=== PATIENT | male | born 1970 | race Caucasian/White ===

== ENCOUNTER 2019-01-05 07:51 | Day surgery (SDC) | payer OTHER ==
[2019-01-05] MEDS ORDERED: ONDANSETRON HCL INJ/PF 4 MG/2 ML SDV IV ONE (08:40)
[2019-01-05] MEDS ORDERED: HYDROMORPHONE HCL INJ/PF 2 MG/ML AMPULE IV ONE ×2 (08:40→11:12)
[2019-01-05] MEDS ORDERED: NORMAL SALINE 1000 ML 1,000 ML IV ONE (08:40)
[2019-01-05 08:50] LABS: ABSOLUTE BASOPHILS # (AUTO) 0.1 10^3/uL (0.0-0.2); ABSOLUTE LYMPHOCYTES (AUTO) 1.5 10^3/uL (0.5-4.7); ABSOLUTE MONOCYTES (AUTO) 0.9 10^3/uL (0.1-1.4); ABSOLUTE NEUT (AUTO) 15.7 10^3/uL (1.7-8.2); BASOPHILS % (AUTO) 0.4 % (0-2); EOSINOPHILS % (AUTO) 0.1 % (0-6); HEMATOCRIT 45.3 % (37.9-51.0); HEMOGLOBIN 15.4 g/dL (13.5-17.0); LYMPHOCYTES % (AUTO) 8.3 % (13-45); MEAN CORPUSCULAR HEMOGLOBIN 27.4 pg (27.0-33.4); MEAN CORPUSCULAR VOLUME 81 fl (80-97); MONOCYTES % (AUTO) 4.9 % (3-13); PLATELET COUNT 351 10^3/uL (150-450); RED BLOOD COUNT 5.62 10^6/uL (4.35-5.55); RED CELL DISTRIBUTION WIDTH 13.6 % (11.5-14.0); SEGMENTED NEUTROPHILS % (AUTO) 86.3 % (42-78); TOTAL CELLS COUNTED % (AUTO) 100 %; WHITE BLOOD COUNT 18.2 10^3/uL (4.0-10.5)
[2019-01-05 09:20] LABS: ALBUMIN 4.6 g/dL (3.5-5.0); ALKALINE PHOSPHATASE 108 U/L (38-126); ANION GAP 12 (5-19); ASPARTATE AMINO TRANSFERASE 37 U/L (17-59); BILIRUBIN,DIRECT 0.4 mg/dL (0.0-0.4); BILIRUBIN,TOTAL 0.9 mg/dL (0.2-1.3); BLOOD UREA NITROGEN 12 mg/dL (7-20); CARBON DIOXIDE 23 mmol/L (22-30); CHLORIDE 103 mmol/L (98-107); GLUCOSE 143 mg/dL (75-110); POTASSIUM 4.5 mmol/L (3.6-5.0); TOTAL PROTEIN 8.3 g/dL (6.3-8.2)
--- NOTE | 2019-01-05 09:36 | ER Document Report ---
Entered by DARRYL PINTO SCRIBE 01/05/19 0841 Acting as scribe for:IDANIA CUBA MD ED GI/ - General Chief Complaint: Abdominal Pain Stated Complaint: ABDOMINAL PAIN Time Seen by Provider: 01/05/19 08:27 Primary Care Provider: ES,PETRA [Primary Care Provider] - Follow up as needed Mode of Arrival: Ambulatory Information source: Patient Notes: Patient is a 48-year-old male with a history of kidney stones that presents to the emergency department today with complaints of periumbilical abdominal pain beginning yesterday at 2200, increasing in severity since onset. Patient states he has had associated nausea and vomiting as well. Patient states the pain today is similar to a pain he has had in the past which was related to an inguinal hernia that had to be repaired. Patient states he has recently been taking 800 mg ibuprofen [id number] for chronic knee pain. Patient states he has felt "hot and cold". TRAVEL OUTSIDE OF THE [place] IN LAST 30 DAYS: No - Related Data Allergies/Adverse Reactions: No Known Allergies Allergy (Unverified 01/05/19 07:53) Past Medical History - General Information source: Patient - Social History Smoking Status: Never Smoker Cigarette use (# per day): No Frequency of alcohol use: Social Drug Abuse: None Occupation: Retired Lives with: Family Family History: Reviewed & Not Pertinent Renal/ Medical History: Reports: Hx Kidney Stones Past Surgical History: Reports: Hx Inguinal Hernia - bilateral Review of Systems - Review of Systems Constitutional: See HPI, Other - feeling "hot and cold" EENT: No symptoms reported Cardiovascular: No symptoms reported Respiratory: No symptoms reported Gastrointestinal: See HPI, Abdominal pain, Nausea, Vomiting, Constipation Genitourinary: No symptoms reported Male Genitourinary: No symptoms reported Musculoskeletal: No symptoms reported Skin: No symptoms reported Hematologic/Lymphatic: No symptoms reported Neurological/Psychological: No symptoms reported -: Yes All other systems reviewed and negative Physical Exam - Vital signs Vitals: Temp Pulse Resp BP Pulse Ox 97.8 F 100 22 H 135/92 H 93 01/05/19 07:58 01/05/19 07:58 01/05/19 07:58 01/05/19 07:58 01/05/19 07:58 - Notes Notes: Physical Exam: General: Alert, appears uncomfortable. HEENT: Normocephalic. Atraumatic. PERRL. Extraocular movements intact. Oropharynx clear. Neck: Supple. Non-tender. Respiratory: No respiratory distress. Clear and equal breath sounds bilaterally. Cardiovascular: Regular rate and rhythm. Abdominal: Lower abdominal tenderness with palpation with guarding, upper abdomen is less tender with less guarding. No distension. Hypoactive Bowel Sounds. Back: No gross abnormalities. Extremities: Moves all four extremities. Upper extremities: Normal inspection. Normal ROM. Lower extremities: Normal inspection. No edema. Normal ROM. Neurological: Normal cognition. AAOx4. Normal speech. Psychological: Normal affect. Normal Mood. Skin: Warm. Dry. Normal color. Course - Re-evaluation Re-evalutation: 01/05/19 09:39 Reevaluation after giving the patient pain medication, he states that the pain is much better. Palpating the lower abdomen now still produces guarding all the way across, but he denies pain left side, but has significant pain in the right lower quadrant. Will get an IV contrast CT scan of the abdomen pelvis. - Vital Signs Vital signs: Temp Pulse Resp BP Pulse Ox 97.8 F 92 17 132/87 H 92 01/05/19 07:58 01/05/19 10:00 01/05/19 10:00 01/05/19 10:00 01/05/19 10:00 - Laboratory Result Diagrams: 01/05/19 08:29 01/05/19 08:29 Laboratory results interpreted by me: 01/05/19 01/05/19 08:29 08:29 WBC 18.2 H RBC 5.62 H Lymph % (Auto) 8.3 L Absolute Neuts (auto) 15.7 H Seg Neutrophils % 86.3 H Glucose 143 H Total Protein 8.3 H - Diagnostic Test Radiology reviewed: Image reviewed, Reports reviewed - CT scan abdomen pelvis with IV contrast shows acute appendicitis Discharge - Discharge Clinical Impression: Acute appendicitis Qualifiers: Acute appendicitis type: with localized peritonitis Appendicitis gangrene presence: unspecified whether gangrene present Appendicitis perforation presence: without perforation Appendicitis abscess presence: without abscess Qualified Code(s): K35.30 - Acute appendicitis with localized peritonitis, without perforation or gangrene Leukocytosis Qualifiers: Leukocytosis type: unspecified Qualified Code(s): D72.829 - Elevated white blood cell count, unspecified Condition: Stable Disposition: ADMITTED INPATIENT Admitting Provider: Surgicalist Unit Admitted: OR [facility]: [facility] [[facility]] - Follow up as needed Scribe Attestation: 01/05/19 09:40 I personally performed the services described in the documentation, reviewed and edited the documentation which was dictated to the scribe in my presence, and it accurately records my words and actions. I personally performed the services described in the documentation, reviewed and edited the documentation which was dictated to the scribe in my presence, and it accurately records my words and actions.
[2019-01-05 09:45] LABS: APPEARANCE,URINE CLEAR; BILIRUBIN,URINE NEGATIVE (NEGATIVE); COLOR,URINE YELLOW; GLUCOSE, URINE NEGATIVE (NEGATIVE); KETONES,URINE NEGATIVE (NEGATIVE); LEUKOCYTE ESTERASE,URINE NEGATIVE (NEGATIVE); NITRITE,URINE NEGATIVE (NEGATIVE); PROTEIN,URINE NEGATIVE (NEGATIVE); URINE SPECIFIC GRAVITY 1.019; UROBILINOGEN,URINE NEGATIVE mg/dL (<2.0)
--- NOTE | 2019-01-05 11:00 | RADIOLOGY REPORT (SQ) ---
EXAM DESCRIPTION: CT ABD/PELVIS WITH IV ONLY COMPLETED DATE/TIME: 01/05/2019 10:42 am REASON FOR STUDY: RLQ abd pain, leukocytosis COMPARISON: None. TECHNIQUE: CT scan of the abdomen and pelvis performed using helical scanning technique with dynamic intravenous contrast injection. No oral contrast. Images reviewed with lung, soft tissue, and bone windows. Reconstructed coronal and sagittal MPR images reviewed. Delayed images for evaluation of the urinary system also acquired. All images stored on PACS. All CT scanners at this facility use dose modulation, iterative reconstruction, and/or weight based d osing when appropriate to reduce radiation dose to as low as reasonably achievable (ALARA). [facility]: Dose Right [facility]: CareDose [facility]: Dose Right [facility]: Teradose 4D [facility]: GeeYuu CONTRAST TYPE AND DOSE: contrast/concentration: Isovue 350.00 mg/ml; Total Contrast Delivered: 100.0 ml; Total Saline Delivered: 72.0 ml RENAL FUNCTION: BUN 12, creatinine 0.84 RADIATION DOSE: CT Rad equipment meets quality standard of care and radiation dose reduction techniq ues were employed. CTDIvol: 14.6 - 17.2 mGy. DLP: 1858 mGy-cm.. LIMITATIONS: None. FINDINGS: LOWER CHEST: No significant findings. No nodules or infiltrates. LIVER: Normal size. No masses. No dilated ducts. SPLEEN: Normal size. No focal lesions. PANCREAS: No masses. No significant calcifications. No adjacent inflammation or peripancreatic fluid collections. Pancreatic duct not dilated. GALLBLADDER: No identified stones by CT criteria. No inflammatory changes to suggest cholecystitis. ADRENAL GLANDS: No significant masses or asymmetry. RIGHT KIDNEY AND URETER: No solid masses. No significant calcifications. No hydronephrosis or hyd roureter. LEFT KIDNEY AND URETER: No solid masses. No significant calcifications. No hydronephrosis or hydr oureter. AORTA AND VESSELS: No aneurysm. No dissection. Renal arteries, SMA, celiac without stenosis. RETROPERITONEUM: No retroperitoneal adenopathy, hemorrhage or masses. BOWEL AND PERITONEAL CAVITY: No masses or inflammatory changes. No free fluid or peritoneal masses. APPENDIX: The appendix is slightly dilated. There is surrounding inflammation. Findings are consist ent with acute appendicitis. The appendix measures up to 12.1 mm in diameter. No free air. PELVIS: No mass. No free fluid. Normal bladder. ABDOMINAL WALL: No masses. No hernias. BONES: No significant or acute findings. OTHER: No other significant finding. IMPRESSION: Findings are consistent with acute appendicitis as described. TECHNICAL DOCUMENTATION: JOB ID: [id number] Quality ID # [id number]: Final reports with documentation of one or more dose reduction techniques (e.g., Au tomated exposure control, adjustment of the mA and/or kV according to patient size, use of iterative reconstruction technique) 2010 [employer]- All Rights Reserved Reading location - IP/workstation name: [email or web address]
[2019-01-05] MEDS ORDERED: PIPERACILLIN/TAZOBACTAM 3.375 GM VIAL IV ONE (11:12)
--- NOTE | 2019-01-05 11:56 | PDOC H&P ---
History of Present Illness Admission Date/PCP: 01/05/19 11:43 [facility] History of Present Illness: JERRI RODRIGUEZ is a 48 year old malewith a history of kidney stones that presents to the emergency department today with complaints of periumbilical abdominal pain beginning yesterday at 2200, increasing in severity since onset. Patient states he has had associated nausea and vomiting as well. Patient states the pain today is similar to a pain he has had in the past which was related to an inguinal hernia that had to be repaired. Patient states he has recently been taking 800 mg ibuprofen [id number] for chronic knee pain. Patient states he has felt "hot and cold". TRAVEL OUTSIDE OF THE [place] IN LAST 30 DAYS: No Past Medical History Cardiac Medical History: Reports: None Pulmonary Medical History: Denies: None, Asthma, Bronchitis, Chronic Obstructive Pulmonary Disease (COPD), Intubation, Pneumonia, Respiratory Failure, Sleep Apnea, Tuberculosis, Other EENT Medical History: Denies: None, Cataracts, Eyes, Ears, Nose, Throat, Other Neurological Medical History: Denies: None, Hemorrhagic CVA, Ischemic CVA, Migraine, Multiple Sclerosis, Seizures, Other Endocrine Medical History: Reports: None Renal/ Medical History: Reports: None GI Medical History: Denies: None, Cirrhosis, Crohn's Disease, Diverticulitis, Gastroesophageal Reflux Disease, Hepatitis, Hiatal Hernia, Peptic Ulcer Disease, Ulcerative Colitis, Other Musculoskeltal Medical History: Reports: Arthritis Skin Medical History: Denies: None, Eczema, Psoriasis, Other Psychiatric Medical History: Denies: None, Alcohol Dependency, Attention Deficit Hyperactivity Disorder, Bipolar Disorder, Dementia, Depression, General Anxiety Disorder, Personality Disorder, Post Traumatic Stress Disorder, Schizoaffective Disorder, Substance Abuse, Tobacco Dependency, Other Traumatic Medical History: Denies: None, Gunshot Wound, Pneumothorax, Stab Wound, Traumatic Brain Injury, Other Infectious Medical History: Denies: None, Clostridium Difficile, Hepatitis B, Hepatitis C, HIV, Methicillin-Resistant Staph Aureus, Vancomycin-Resistant Enterococci, Other Past Surgical History Past Surgical History: Reports: Orthopedic Surgery Social History Lives with: Family Smoking Status: Never Smoker Family History Family History: Reviewed & Not Pertinent Parental Family History Reviewed: No Children Family History Reviewed: NA Sibling(s) Family History Reviewed.: NA Medication/Allergy Allergies/Adverse Reactions: No Known Allergies Allergy (Unverified 01/05/19 07:53) Review of Systems Constitutional: PRESENT: fatigue Ears: ABSENT: as per HPI, hearing changes, other Nose, Mouth, and Throat: ABSENT: as per HPI, headache(s), mouth pain, sore throat, vertigo, other Breasts: ABSENT: as per HPI, other Cardiovascular: ABSENT: as per HPI, chest pain, dyspnea on exertion, edema, orthropnea, palpitations, other Respiratory: ABSENT: as per HPI, cough, dyspnea, hemoptysis, sputum, other Gastrointestinal: PRESENT: abdominal pain, bloating Genitourinary: ABSENT: as per HPI, difficulty urinating, dysuria, hematuria, nocturia, other Musculoskeletal: ABSENT: as per HPI, back pain, deformity, joint swelling, muscle weakness, other Integumentary: ABSENT: as per HPI, diaphoresis, erythema, lesions, pruritus, rash, wounds, other Neurological: ABSENT: as per HPI, abnormal gait, abnormal movements, abnormal speech, confusion, convulsions, dizziness, focal weakness, frequent falls, lack of coordination, memory loss, numbness, paresthesias, restless legs, syncope, tingling, tremor(s), vertigo, weakness, other Psychiatric: ABSENT: as per HPI, anxiety, depression, hallucinations, homidical ideation, suicidal ideation, other Endocrine: ABSENT: as per HPI, cold intolerance, flushing, heat intolerance, menstrual abnormalities, polydipsia, polyphagia, polyuria, other Hematologic/Lymphatic: ABSENT: as per HPI, easy bleeding, easy bruising, lymphadenopathy, other Allergic/Immunologic: ABSENT: as per HPI, seasonal rhinorrhea, other Physical Exam Vital Signs: Temp Pulse Resp BP Pulse Ox 97.8 F 96 15 124/87 H 93 01/05/19 07:58 01/05/19 11:29 01/05/19 11:29 01/05/19 11:29 01/05/19 11:29 Intake & Output 01/04/19 01/05/19 01/06/19 06:59 06:59 06:59 Intake Total 1000 Balance 1000 Weight 88.6 kg General appearance: PRESENT: mild distress Head exam: PRESENT: normocephalic Eye exam: PRESENT: EOMI Ear exam: PRESENT: normal external ear exam Mouth exam: PRESENT: moist Neck exam: PRESENT: full ROM Respiratory exam: PRESENT: clear to auscultation cade Cardiovascular exam: PRESENT: RRR Pulses: PRESENT: normal radial pulses, normal femoral pulses GI/Abdominal exam: PRESENT: distended, guarding, rebound Rectal exam: PRESENT: deferred Extremities exam: PRESENT: full ROM Musculoskeletal exam: PRESENT: full ROM Neurological exam: PRESENT: alert, awake, oriented to person, oriented to place Psychiatric exam: PRESENT: appropriate affect Skin exam: PRESENT: dry Results Laboratory Results: 01/05/19 08:29 01/05/19 08:29 01/05/19 01/05/19 01/05/19 08:29 08:29 09:13 WBC 18.2 H RBC 5.62 H Hgb 15.4 Hct 45.3 MCV 81 MCH 27.4 MCHC 34.0 RDW 13.6 Plt Count 351 Seg Neutrophils % 86.3 H Sodium 137.5 Potassium 4.5 Chloride 103 Carbon Dioxide 23 Anion Gap 12 BUN 12 Creatinine 0.84 Est GFR ( Amer) > 60 Glucose 143 H Calcium 10.0 Total Bilirubin 0.9 AST 37 Alkaline Phosphatase 108 Total Protein 8.3 H Albumin 4.6 Lipase 115.5 Urine Color YELLOW Urine Appearance CLEAR Urine pH 5.0 Ur Specific Termo 1.019 Urine Protein NEGATIVE Urine Glucose (UA) NEGATIVE Urine Ketones NEGATIVE Urine Blood NEGATIVE Urine Nitrite NEGATIVE Ur Leukocyte Esterase NEGATIVE Urine WBC (Auto) 1 Urine RBC (Auto) 0 Impressions: Abdomen/Pelvis CT 01/05/19 09:38 IMPRESSION: Findings are consistent with acute appendicitis as described. Assessment & Plan - Diagnosis (1) Acute appendicitis Qualifiers: Acute appendicitis type: with localized peritonitis Appendicitis gangrene presence: unspecified whether gangrene present Appendicitis perforation presence: without perforation Appendicitis abscess presence: without abscess Qualified Code(s): K35.30 - Acute appendicitis with localized peritonitis, without perforation or gangrene Is this a current diagnosis for this admission?: Yes Plan: start iv fluids and antibiotics in er plan on laparoscopic appendectomy risks benifits discussed with pt
[2019-01-05] MEDS ORDERED: BUPIVACAINE HCL 0.25% /EPINEPHRINE INJ/PF 30 ML SDV ONE (12:13)
[2019-01-05] MEDS ORDERED: HYDROMORPHONE HCL INJ/PF 2 MG/ML AMPULE ONE (12:19)
[2019-01-05] MEDS ORDERED: PROPOFOL INJ 200 MG/20 ML VIAL IV ONE (12:19)
[2019-01-05] MEDS ORDERED: MIDAZOLAM 2 MG/2 ML INJ ONE (12:19)
[2019-01-05] MEDS ORDERED: PROMETHAZINE HCL INJ 25 MG/1 ML VIAL IV PRN ×2 (14:03)
[2019-01-05] MEDS ORDERED: FENTANYL CITRATE INJ/PF 100 MCG/2 ML AMPUL IV PRN ×3 (14:03)
[2019-01-05] MEDS ORDERED: MEPERIDINE HCL/PF INJ 25 MG/1 ML DISP.SYRIN IV PRN (14:03)
[2019-01-05] MEDS ORDERED: DIPHENHYDRAMINE HCL 50 MG/ML VIAL IV PRN (14:03)
[2019-01-05] MEDS ORDERED: ONDANSETRON HCL INJ/PF 4 MG/2 ML SDV IV PRN (14:03)
--- NOTE | 2019-01-05 14:31 | Operative Report ---
Nonrecallable Operative Report DATE OF SURGERY: 01/05/19 PREOPERATIVE DIAGNOSIS: Acute appendicitis POSTOPERATIVE DIAGNOSIS: Acute appendicitis OPERATION: Appendectomy laparoscopic SURGEON: GERMAN ROTH RATE MARKER: Jeromeelarturo TISSUE REMOVED OR ALTERED: Appendix COMPLICATIONS: None ESTIMATED BLOOD LOSS: 10 cc INTRAOPERATIVE FINDINGS: Acute appendicitis PROCEDURE: The patient was taken to the operating room where she underwent general anesthesia.. The abdomen was exposed, prepped and draped sterile fashion. Instrumentation was set for laparoscopic appendectomy Surgical plan and surgical time out conducted A infra umbilical horizontal incision was made with the knife. Veress needle was inserted peritoneal cavity pneumoperitoneum was established. Varies needle was removed and a 5 mm port was inserted and a 5 mm scope was inserted. Under direct visualization using a 5 mm fl scope, 2 additional ports were placed, a 5 mm in the suprapubic position, and a 12 mm in the far left lower quadrant. Both ports were established in previous scar tissue. Visualization of the peritoneal cavity revealed no evidence of intra-abdominal injury during entry of the needle or ports. The appendix was brought into the free space of the peritoneal cavity. It was acutely inflamed without rupture or phlegmon. Mesoappendix was taken down with the cautery and a vascular staple line. We then introduced the 45 mm Ethicon stapler blue load. The meso appendix and appendix were amputated with a single firing of the stapler. A second firing was required to complete the division of the appendix at its base. The appendix was removed from the patient to the left lower quadrant port. The specimen was sent to pathology for permanent analysis. We returned the peritoneal cavity check for bleeding and there was none. Sponge counts are correct. Examination of the staple line revealed excellent hemostasis up. At this point felt the operation was complete all ports removed under direct visualization pneumoperitoneum evacuated and wounds closed with 0 Vicryls, the fascia and 4-0 Biosyn for skin benzoin and Steri-Strips; approximately 30 mL of percent Marcaine were injected into the subcutaneous tissue. The patient thought procedure well was extubated taken recovery in stable condition. Catalina SHAFER was present for the entire procedure for help with wound retraction wound closure
[2019-01-05] MEDS ORDERED: ONDANSETRON HCL INJ/PF 4 MG/2 ML SDV ONE (14:33)
[2019-01-05] MEDS ORDERED: LIDOCAINE 2% INJ-PF (20 MG/ML) 2 ML AMPUL ONE (14:33)
[2019-01-05] MEDS ORDERED: SUCCINYLCHOLINE CHLORIDE INJ 200 MG/10 ML VIAL ONE (14:33)
[2019-01-05] MEDS ORDERED: ROCURONIUM BROMIDE INJ 50 MG/5 ML VIAL IV ONE (14:33)
[2019-01-05] MEDS ORDERED: NEOSTIGMINE METHYLSULFATE 10 MG/10 ML VIAL ONE (14:33)
[2019-01-05] MEDS ORDERED: GLYCOPYRROLATE 1 MG/5 ML VIAL ONE (14:33)
[2019-01-05] MEDS ORDERED: KETOROLAC TROMETHAMINE 60 MG/2 ML SDV ONE (14:33)
[2019-01-05] MEDS ORDERED: OXYCODONE-ACETAMINOPHEN 5-325 MG TABLET PO PRN (14:33)
[2019-01-05] MEDS ORDERED: DEXAMETHASONE SOD PHOSPHATE INJ 4 MG/1 ML VIAL ONE (14:33)
[2019-01-05] MEDS ORDERED: PHENYLEPHRINE HCL INJ/PF 10 MG/1 ML SDV ONE (14:33)
[2019-01-05] MEDS ORDERED: METOCLOPRAMIDE HCL INJ/PF 10 MG/2 ML SDV ONE (14:33)
--- NOTE | 2019-01-05 14:33 | Discharge Summary ---
Discharge Summary (SDC) - Discharge Final Diagnosis: Acute appendicitis Date of Surgery: 01/05/19 Condition: Good [facility]errals: [facility] [[facility]] - Follow up as needed Discharge Diet: As Tolerated Discharge Activity: Activity As Tolerated, No Lifting Over 10 Pounds Report the Following to Your Physician Immediately: Shortness of Breath, Nausea, Vomiting, Increase in Pain, Fever over 101 Degrees, Unusual Bleeding, Redness - pt needs f/u in surgery clinic in 7-10 days.
[2019-01-05 16:40] VITALS: BP 119/75
== END 2019-01-05 16:35 | disposition home or self-care (01) ==
LOC: ER 07:51 → UNDOADMIN 11:43 → ASU 11:43 → EH 11:43 → UNDODISIN 16:35 → ASU 16:35
PROVIDERS: ATTEND Surgery
DX: K35.80 Unspecified acute appendicitis (principal); E66.9 Obesity, unspecified; D72.829 Elevated white blood cell count, unspecified
CPT/HCPCS: 36415; 83690; 85025; 80053; 81001; 88304 ×2; 74177; 44970; J2250; J3490 ×3; J1100; J1885; J2765; J2710; J1170; J2370; J0330; J2405; J7030; J2704; J2543